=== PATIENT | female | born 1990 | race Caucasian/White ===

== ENCOUNTER → 2017-04-21 | Outpatient (CLI) | payer BC ==
[2017-04-22 14:54] LABS: ANTINUCLEAR ANTIBODIES Negative (Negative)
[2017-04-22 16:40] LABS: HEPATITIS B CORE AB IGM Negative (Negative); HEPATITIS B CORE AB TOT Negative (Negative); HEPATITIS BE AB Negative (Negative); HEPATITIS BE ANTIGEN Negative (Negative); HEPATITIS C VIRUS AB 0.1 s/co ratio (0.0-0.9); HEPATITS B SURFACE ANTIGEN Negative (Negative)
[2017-04-23 11:27] LABS: HEPATITIS B SURFACE AB QUAL Non Reactive (.)
== END ==
LOC: OD 12:57
PROVIDERS: ATTEND Nurse Practitioner Family
DX: R74.0 Nonspecific elevation of levels of transaminase and lactic acid dehydrogenase [LDH] (principal)
CPT/HCPCS: 36415; 86038; 86704; 86705; 86706; 86707; 86803; 87340; 87350

== ENCOUNTER → 2017-09-14 | Outpatient (CLI) | payer BC | LOC: OD 17:16 | PROVIDERS: ATTEND Nurse Practitioner Family | DX: R82.71 Bacteriuria (principal) | CPT/HCPCS: 87086; 87088 ==

== ENCOUNTER → 2018-03-25 | Outpatient (CLI) | payer BC | LOC: OD 07:40 | PROVIDERS: ATTEND Nurse Practitioner Family | DX: N91.2 Amenorrhea, unspecified (principal) | CPT/HCPCS: 36415; 84702 ==

== ENCOUNTER → 2019-07-20 | Outpatient (CLI) | payer BC | LOC: OD 12:19 | PROVIDERS: ATTEND Nurse Practitioner Pediatrics | DX: N92.6 Irregular menstruation, unspecified (principal) | CPT/HCPCS: 36415; 84702 ==